=== PATIENT | male | born 1990 | race Caucasian/White ===

== ENCOUNTER 2024-04-17 18:57 | Emergency (ER) | payer SELFPAY ==
[2024-04-17] MEDS ORDERED: predniSONE 20 MG TAB ONE (20:05)
[2024-04-17] MEDS ORDERED: Ipratropium/Albuterol 3 ML NEB ONE (20:08)
[2024-04-17] MEDS ORDERED: Albuterol 200 PUFF (6.7GM INHALER) ONE (20:52)
== END 2024-04-17 21:08 | disposition home or self-care (01) ==
LOC: ERS 18:57
DX: J45.909 Unspecified asthma, uncomplicated (principal)
CPT/HCPCS: 71045; 87428; J7512; J7620

== ENCOUNTER 2024-12-28 17:44 | Emergency (ER) | payer SELFPAY ==
[2024-12-28] MEDS ORDERED: Dexamethasone 10 MG/ML VIAL ONE ×2 (18:40→18:54)
[2024-12-28] MEDS ORDERED: Albuterol 200 PUFF (6.7GM INHALER) ONE (18:40)
== END 2024-12-28 19:00 | disposition home or self-care (01) ==
LOC: ERS 17:44
DX: J45.901 Unspecified asthma with (acute) exacerbation (principal); Z76.0 Encounter for issue of repeat prescription
CPT/HCPCS: J1100